=== PATIENT | female | born 1975 ===

== ENCOUNTER 2017-05-05 18:03 | Emergency (ER) | payer SELFPAY ==
[2017-05-05 19:01] VITALS: TEMP 98.1; O2SAT 97
[2017-05-05] MEDS ORDERED: Sodium Chloride 0.9% 1,000 ML IV ONE (20:49)
[2017-05-05 20:56] LABS: BASO # 0.1 K/uL (0.0-0.2); BASO % 0.6 % (0.0-2.0); EOS # 0.3 K/uL (0.0-0.7); EOS % 2.2 % (0.0-4.0); HEMOGLOBIN 8.9 g/dL (11.0-16.0); LYMPH # 2.7 K/uL (1.0-4.3); LYMPH % 21.5 % (20.0-40.0); MEAN CELL VOLUME 69.4 fL (81.0-99.0); MEAN CORPUSCULAR HEMOGLOBIN 21.3 pg (27.0-31.0); MEAN CORPUSCULAR HGB CONC 30.7 g/dL (33.0-37.0); MEAN PLATELET VOLUME 7.9 fL (7.2-11.7); MONO # 0.9 K/uL (0.0-0.8); MONO % 7.2 % (0.0-10.0); NEUT # 8.7 K/uL (1.8-7.0); NEUT % 68.5 % (50.0-75.0); NRBC % 0.1 % (0.0-2.0); RBC 4.19 Mil/uL (3.80-5.20); RED CELL DISTRIBUTION WIDTH 18.2 % (11.5-14.5); WHITE BLOOD COUNT 12.7 K/uL (4.8-10.8)
[2017-05-05] MEDS ORDERED: Sodium Chloride 0.9% 1,000 ML ONE (20:56)
[2017-05-05 21:02] LABS: HCG,QUALITATIVE URINE NEGATIVE (NEGATIVE)
[2017-05-05 21:03] LABS: SQUAMOUS EPITHIAL 4 /hpf (0-5); URINE BACTERIA RARE (<OCC); URINE BILIRUBIN NEGATIVE (NEGATIVE); URINE BLOOD NEGATIVE (NEGATIVE); URINE CLARITY Clear (Clear); URINE COLOR Yellow (YELLOW); URINE GLUCOSE (UA) NORMAL (Normal); URINE LEUKOCYTE ESTERASE NEG Leu/uL (Negative); URINE NITRATE NEGATIVE (NEGATIVE); URINE PROTEIN NEGATIVE (NEGATIVE); URINE UROBILINOGEN NORMAL mg/dL (0.2-1.0)
[2017-05-05 21:09] LABS: ALB/GLOB RATIO 1.2 (1.0-2.1); ALBUMIN 3.9 g/dL (3.5-5.0); ALT/SGPT 18 U/L (9-52); AST/SGOT 16 U/L (14-36); BLOOD UREA NITROGEN 12 mg/dL (7-17); CALCIUM 8.8 mg/dl (8.6-10.4); GFR AFRICAN-AMERICAN > 60; GFR NON-AFRICAN AMERICAN > 60; LIPASE 73 U/L (23-300)
[2017-05-05 21:10] LABS: INR 1.1; PROTHROMBIN TIME 12.8 SECONDS (9.7-12.2)
--- NOTE | 2017-05-05 21:11 | C.PDOC ---
History Of Present Illness 41yo female, with history of lupus, antiphospholipid syndrome with DVT, iliac vein thrombosis, PE, hemorrhoids, currently on Xarelto and Plavix with good daily compliance, presents to ER with complaints of right sided abdominal pain for the past 1 week. She also reports associated occasional nausea and vomiting for the last 2 days. Of note, patient had a DVT while on Xarelto, resulting in her having to take Plavix as well. She denies any fever, chills, chest pain, shortness of breath. No other complaints. Of note, patient asked about her hemorrhoids and states she has slight rectal bleeding which is painless and consistent with her hemorrhoids. She reports she is not aware of diet modifications as treatment for her hemorrhoids. She had [place] food for lunch, chicken tenders yesterday and oatmeal in the morning. Seen by Dr. Stein- GI Consult, today, as referred by Dr. Raciel Hernandez to al for chronic hemorroids, and rule-out Ulcerative Colitis. Pt denies h/o bloody diarrheal illness. Has had hemorroids for "many" years, and does not eat any fresh fruits nor vegetables "because I am allergic to them." Time Seen by Provider: 05/05/17 20:48 Chief Complaint (Nursing): Abdominal Pain History Per: Patient History/Exam Limitations: no limitations Onset/Duration Of Symptoms: Days Current Symptoms Are (Timing): Still Present Location Of Pain/Discomfort: RUQ, RLQ Quality Of Discomfort: "Pain" Associated Symptoms: Nausea, Vomiting Past Medical History Reviewed: Historical Data, Nursing Documentation, Vital Signs Vital Signs: Last Vital Signs Temp 98.1 F 05/05/17 23:36 Pulse 93 H 05/05/17 23:36 Resp 20 05/05/17 23:36 BP 107/65 05/05/17 23:36 Pulse Ox 97 05/05/17 23:39 - Medical History PMH: Diverticulitis, Deep Vein Thrombosis (ILIAC), Fibromyalgia Other PMH: Lupus, Antiphospholipid syndrome Surgical History: No Surg Hx Family History: States: No Known Family Hx - Social History Hx Alcohol Use: Yes Hx Substance Use: No - Immunization History Hx Tetanus Toxoid Vaccination: No Hx Influenza Vaccination: No Review Of Systems Except As Marked, All Systems Reviewed And Found Negative. Constitutional: Negative for: Fever, Chills Cardiovascular: Negative for: Chest Pain Respiratory: Negative for: Shortness of Breath Gastrointestinal: Positive for: Nausea, Vomiting, Abdominal Pain Physical Exam - Physical Exam Appears: Non-toxic, Other (Morbidly obese) Skin: Normal Color Head: Normacephalic Eye(s): bilateral: Normal Inspection Neck: Normal ROM, Supple Chest: Symmetrical Cardiovascular: Rhythm Regular Respiratory: Normal Breath Sounds, No Wheezing Gastrointestinal/Abdominal: Bowel Sounds (hypoactive), Soft (dull to percussion on right side), Tenderness (vague tenderness to eipagtric area and right abdomen ), No Other (Montero's sign, McBurney's point tenderness) Neurological/Psych: Oriented x3 ED Course And Treatment - Laboratory Results Result Diagrams: 05/05/17 20:53 05/05/17 20:53 Lab Interpretation: Abnormal (+ mild microcytic anemia c/w hgb 11 (06/20)) ECG: Interpreted By Nj ECG Rhythm: Sinus Rhythm, R BBB ECG Interpretation: Normal Rate From EC O2 Sat by Pulse Oximetry: 97 (RA) Pulse Ox Interpretation: Normal - Radiology CXR: Interpreted by Me CXR Interpretation: Yes: No Acute Disease - Other Rad abd x 2 X-Ray: Interpreted by Nj (+FOS) - CT Scan/US CT Angio Chest Other Rad Studies (CT/US): Radiology Report Reviewed CT/US Interpretation: EXAM: CT Angiography Chest With Intravenous Contrast. CLINICAL HISTORY: 41 years old, female; Pain; Chest pain; Type not specified; Abdominal pain; Localized; Right upper. quadrant (ruq); Prior surgery; Surgery date: 6+ months; Surgery type: H/o iliac stents; Patient HX: H/o. pe/r/o iliac vein thrombus; Additional info: R abd x 1 week, h/o iliac dvt, stents, pe. TECHNIQUE: Axial computed tomographic angiography images of the chest with intravenous contrast using. pulmonary embolism protocol. All CT scans at this facility use one or more dose reduction. techniques, viz.: automated exposure control; ma/kV adjustment per patient size (including targeted. exams where dose is matched to indication; i.e. head); or iterative reconstruction technique. MIP reconstructed images were created and reviewed. Coronal and sagittal reformatted images were created and reviewed. CONTRAST: 100 mL of visipaque 320 administered intravenously. COMPARISON: No relevant prior studies available. FINDINGS: PULMONARY ARTERIES: Contrast opacification of the pulmonary arteries is adequate, and there. are no filling defects seen to suggest pulmonary embolism. AORTA: No evidence of aortic dissection. LUNGS: Multifocal, small, patchy, ill-defined areas of groundglass density in the lungs bilaterally,. involving the bilateral upper and lower lobes, greatest in the left lower lobe, suspicious for bilateral. ground glass consolidation. Findings are suspicious for a multifocal, bilateral pneumonia. No. evidence of diffuse pulmonary vascular congestion. PLEURAL SPACE: No pneumothorax or pleural effusions seen. HEART: No evidence of significant pericardial effusion. BONES/JOINTS: No acute bony abnormality identified. SOFT TISSUES: No acute abnormality of the visualized soft tissues seen. LYMPH NODES: No evidence of diffuse lymphadenopathy. IMPRESSION: - Findings suspicious for a multifocal, bilateral pneumonia. There are multifocal small,. scattered areas of groundglass consolidation in the lungs bilaterally. - Otherwise, no evidence of significant acute process. No evidence of pulmonary embolism. - See above for remaining findings. CT Angio Abdomen Other Rad Studies (CT/US): Radiology Report Reviewed CT/US Interpretation: EXAM: CT Abdomen and Pelvis With Intravenous Contrast. EXAM DATE/TIME: 05/05/2017 8:57 PM. CLINICAL HISTORY: 41 years old, female; Pain; Chest pain; Type not specified; Abdominal pain; Localized; Right upper. quadrant (ruq); Prior surgery; Surgery date: 6+ months; Surgery type: H/o iliac stents; Patient HX: H/o. pe/r/o iliac vein thrombus; Additional info: R abd x 1 week, h/o iliac dvt, stents, pe. TECHNIQUE: Axial computed tomography images of the abdomen and pelvis with intravenous contrast. All CT. scans at this facility use one or more dose reduction techniques, viz.: automated exposure control;. ma/kV adjustment per patient size (including targeted exams where dose is matched to indication; i.e. head); or iterative reconstruction technique. Coronal and sagittal reformatted images were created and reviewed. CONTRAST: 100 mL of visipaque 320 administered intravenously. COMPARISON: No relevant prior studies available. FINDINGS: LOWER THORAX: No infiltrate seen in the lung bases. ABDOMEN: LIVER: Fatty infiltration of the liver. GALLBLADDER AND BILE DUCTS: No CT evidence of acute cholecystitis. No evidence of. significant biliary ductal dilatation. PANCREAS: No CT evidence of acute pancreatitis. SPLEEN: No acute abnormality of the spleen identified. ADRENALS : No acute abnormality of the adrenal glands identified. KIDNEYS AND URETERS: No acute abnormality of the kidneys identified. STOMACH AND BOWEL: Scattered colonic diverticulosis, without evidence of diverticulitis. Otherwise, no significant abnormality of the bowel is identified. No acute abnormality of the stomach. or duodenum identified. No evidence of small bowel obstruction. APPENDIX: Appendix is seen, and is within normal limits in appearance. BLADDER : No acute abnormality of the bladder identified. REPRODUCTIVE: Uterus is mildly enlarged, and has a lobulated contour. Findings are most likely. secondary to fibroids. Tampon noted within the vagina. No evidence of large adnexal masses. ABDOMEN and PELVIS: INTRAPERITONEAL SPACE: No evidence of free intraperitoneal air or fluid. BONES/JOINTS: No acute fractures or other acute bony abnormality noted. SOFT TISSUES: See below. No evidence of abdominal wall hernia containing bowel. VASCULATURE: Bilateral iliac vein stents in place. There are stents in the bilateral common iliac. veins, as well as a stent in the right external iliac vein. These stents appear thrombosed. There does. appear to be normal enhancement of the bilateral external iliac and common femoral veins, distal to. the stents. There is also enhancement of the IVC and both renal veins, proximal to the stents. Multiple prominent vessels seen in the retroperitoneum bilaterally, adnexal regions bilaterally, and. right anterior abdominal and pelvic wall, most likely representing venous collaterals. No evidence of. abdominal aortic aneurysm. LYMPH NODES: No evidence of diffuse lymphadenopathy. IMPRESSION: - Bilateral iliac vein stents in place. These appear thrombosed, which may be a chronic. finding. There is enhancement of the veins above and below the thrombosed stent, . presumably from collateral vessels. - See above for remaining findings. Progress Note: toradol IV and NS, then Morphine 6 IV for chronic R abd discomfort. Reevaluation Time: 23:25 Reassessment Condition: Improved - Physician Consult Information Outcome Of Conversation: 2300: d/w Ron- GI Fellow- recommends adm pt for reversal of double anti-coagulation for elective colonoscopy, presumably to r/o UC. Pt without diarrheal illness, well known hemorroids. 2315: d/w Raciel Hernandez- PMD- declines to adm pt and will f/u as opt- and chooses to perform elective colonoscopy with reversal of anticoagulation as needed @ [facility]. 2330: called back to d/w GI Fellow- Dr. Velasquez- informed pt will not be admitted and will inform Beatrice. Dr. Barron did not call the ED today, nor did she send papers/prescription outlining desired workup and plan. Medical Decision Making Medical Decision Making: Patient accompanied by her sister who presents note from Dr. Barron, GI who evaluated patient and referred patient from his office requesting labs and CT. Plan: -- Labs -- IV Fluids -- Toradol 30mg IVP -- CT Angio Chest and Abdomen normal CT ABD/Pelvis- exceptions noted, no acute issues. LOW susp of UC mild microcytic anemia prob related to upper GI or hemorroids, may be f/u as opt - per PMD constipation. poor diet Educated to help treat hemorroids. Disposition Doctor Will See Patient In The: Office Counseled Patient/Family Regarding: Studies Performed, Diagnosis - Disposition Referrals: Raciel Hernandez MD [Staff Provider] - Disposition: HOME/ ROUTINE Disposition Time: 23:30 Condition: GOOD Additional Instructions: constipation: drink a bottle of Mag Citrate now and re-evaluate your abdominal discomfort after using the bathroom 2-3 times Diet and exercise changes Eat 7 fresh fruits and vegetables daily Loose weight Daily stool softners Hemorroids: may be evaled as opt with your PMD or GI referral Iron Deficiency Anemia: HGB 9 today- stable Consider iron supplements with your PMD CT of Chest/Abd/Pelvis normal today (except for thrombosed b/l iliac vein stents ) Instructions: Anemia Caused by Low Iron, Constipation in Adults, Hemorrhoids ( DC) Forms: [employer] (Mauritian) - Clinical Impression Clinical Impression: Iron deficiency anemia, H/O hemorrhoids, Constipation - Scribe Statement The provider has reviewed the documentation as recorded by the Scribe (Licha Graves) Provider Attestation: All medical record entries made by the Scribe were at my direction and personally dictated by me. I have reviewed the chart and agree that the record accurately reflects my personal performance of the history, physical exam, medical decision making, and the department course for this patient. I have also personally directed, reviewed, and agree with the discharge instructions and disposition.
[2017-05-05] MEDS ORDERED: Iodixanol 320 MG/ML 100 ML BOTTLE IV ONE (21:23)
[2017-05-05] MEDS ORDERED: Morphine 4 MG/ML VIAL ONE (21:59)
--- NOTE | 2017-05-05 22:55 | CT ---
EXAM: CT Angiography Chest With Intravenous Contrast CLINICAL HISTORY: 41 years old, female; Pain; Chest pain; Type not specified; Abdominal pain; Localized; Right upper quadrant (ruq); Prior surgery; Surgery date: 6+ months; Surgery type: H/o iliac stents; Patient HX: H/o pe/r/o iliac vein thrombus; Additional info: R abd x 1 week, h/o iliac dvt, stents, pe TECHNIQUE: Axial computed tomographic angiography images of the chest with intravenous contrast using pulmonary embolism protocol. All CT scans at this facility use one or more dose reduction techniques, viz.: automated exposure control; ma/kV adjustment per patient size (including targeted exams where dose is matched to indication; i.e. head); or iterative reconstruction technique. MIP reconstructed images were created and reviewed. Coronal and sagittal reformatted images were created and reviewed. CONTRAST: 100 mL of visipaque 320 administered intravenously. COMPARISON: No relevant prior studies available. FINDINGS: PULMONARY ARTERIES: Contrast opacification of the pulmonary arteries is adequate, and there are no filling defects seen to suggest pulmonary embolism. AORTA: No evidence of aortic dissection. LUNGS: Multifocal, small, patchy, ill-defined areas of groundglass density in the lungs bilaterally, involving the bilateral upper and lower lobes, greatest in the left lower lobe, suspicious for bilateral ground glass consolidation. Findings are suspicious for a multifocal, bilateral pneumonia. No evidence of diffuse pulmonary vascular congestion. PLEURAL SPACE: No pneumothorax or pleural effusions seen. HEART: No evidence of significant pericardial effusion. BONES/JOINTS: No acute bony abnormality identified. SOFT TISSUES: No acute abnormality of the visualized soft tissues seen. LYMPH NODES: No evidence of diffuse lymphadenopathy. IMPRESSION: - Findings suspicious for a multifocal, bilateral pneumonia. There are multifocal small, scattered areas of groundglass consolidation in the lungs bilaterally. - Otherwise, no evidence of significant acute process. No evidence of pulmonary embolism. - See above for remaining findings. EXAM: CT Abdomen and Pelvis With Intravenous Contrast EXAM DATE/TIME: 05/05/2017 8:57 PM CLINICAL HISTORY: 41 years old, female; Pain; Chest pain; Type not specified; Abdominal pain; Localized; Right upper quadrant (ruq); Prior surgery; Surgery date: 6+ months; Surgery type: H/o iliac stents; Patient HX: H/o pe/r/o iliac vein thrombus; Additional info: R abd x 1 week, h/o iliac dvt, stents, pe TECHNIQUE: Axial computed tomography images of the abdomen and pelvis with intravenous contrast. All CT scans at this facility use one or more dose reduction techniques, viz.: automated exposure control; ma/kV adjustment per patient size (including targeted exams where dose is matched to indication; i.e. head); or iterative reconstruction technique. Coronal and sagittal reformatted images were created and reviewed. CONTRAST: 100 mL of visipaque 320 administered intravenously. COMPARISON: No relevant prior studies available. FINDINGS: LOWER THORAX: No infiltrate seen in the lung bases. ABDOMEN: LIVER: Fatty infiltration of the liver. GALLBLADDER AND BILE DUCTS: No CT evidence of acute cholecystitis. No evidence of significant biliary ductal dilatation. PANCREAS: No CT evidence of acute pancreatitis. SPLEEN: No acute abnormality of the spleen identified. ADRENALS: No acute abnormality of the adrenal glands identified. KIDNEYS AND URETERS: No acute abnormality of the kidneys identified. STOMACH AND BOWEL: Scattered colonic diverticulosis, without evidence of diverticulitis. Otherwise, no significant abnormality of the bowel is identified. No acute abnormality of the stomach or duodenum identified. No evidence of small bowel obstruction. APPENDIX: Appendix is seen, and is within normal limits in appearance. PELVIS: BLADDER: No acute abnormality of the bladder identified. REPRODUCTIVE: Uterus is mildly enlarged, and has a lobulated contour. Findings are most likely secondary to fibroids. Tampon noted within the vagina. No evidence of large adnexal masses. ABDOMEN and PELVIS: INTRAPERITONEAL SPACE: No evidence of free intraperitoneal air or fluid. BONES/JOINTS: No acute fractures or other acute bony abnormality noted. SOFT TISSUES: See below. No evidence of abdominal wall hernia containing bowel. VASCULATURE: Bilateral iliac vein stents in place. There are stents in the bilateral common iliac veins, as well as a stent in the right external iliac vein. These stents appear thrombosed. There does appear to be normal enhancement of the bilateral external iliac and common femoral veins, distal to the stents. There is also enhancement of the IVC and both renal veins, proximal to the stents. Multiple prominent vessels seen in the retroperitoneum bilaterally, adnexal regions bilaterally, and right anterior abdominal and pelvic wall, most likely representing venous collaterals. No evidence of abdominal aortic aneurysm. LYMPH NODES: No evidence of diffuse lymphadenopathy. IMPRESSION: - Bilateral iliac vein stents in place. These appear thrombosed, which may be a chronic finding. There is enhancement of the veins above and below the thrombosed stent, presumably from collateral vessels. - See above for remaining findings.
[2017-05-05 23:38] VITALS: BP 107/65; PULSE 93; RESP 20
--- NOTE | 2017-05-06 09:10 | RAD ---
PROCEDURE: Radiographs of the chest and abdomen (obstructive series) HISTORY: R abd pain COMPARISON: None available. TECHNIQUE: AP radiograph of the chest, with upright and supine radiographs of the abdomen. FINDINGS: Examination limited by habitus. CHEST: The cardiomediastinal silhouette appears within normal limits. No focal consolidation. No pleural effusion. No pneumothorax. Please note that chest x-ray has limited sensitivity for the detection of pulmonary masses. ABDOMEN AND PELVIS: Nonobstructive bowel gas pattern. Mild constipation. No definite free air. Bilateral iliac vascular stents. No acute osseous abnormality is detected. IMPRESSION: No focal consolidation identified. Mild constipation. Bilateral iliac vascular stents.
--- NOTE | 2017-05-07 08:56 | CARD ---
APPROVED REPORT EKG Measurement Heart [id number] <Conclusion> Normal sinus rhythm Right bundle branch block Abnormal ECG
== END 2017-05-05 23:53 | disposition home or self-care (01) ==
LOC: C.ER 18:03 → UNDOADMIN 23:05 → C.9E 23:05 → C.ER 23:53
DX: K59.00 Constipation, unspecified (principal); D50.9 Iron deficiency anemia, unspecified; K64.9 Unspecified hemorrhoids
CPT/HCPCS: 71270; 74022; 74175; 80053; 81001; 83690; 84703; 85025; 85610; 85730; 93005; 96361; 96374; 96375; 99285; J1885; J2270; J7040; Q9967